=== PATIENT | male | born 1955 | race Two or more races ===

== ENCOUNTER 2022-08-22 10:21 | Emergency (ER) | payer MEDICAID ==
[~2022-08-22] VITALS: Ht 175.3 cm; Wt 90.0 kg
[2022-08-22 10:24] VITALS: BP 140/64
--- NOTE | 2022-08-22 11:14 | NUR ---
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
== END 2022-08-22 12:12 | disposition home or self-care (01) ==
LOC: ER 10:22
DX: S52.592A Other fractures of lower end of left radius, initial encounter for closed fracture (principal); W18.39XA Other fall on same level, initial encounter; Y93.89 Activity, other specified; Y92.89 Other specified places as the place of occurrence of the external cause; Y99.8 Other external cause status
CPT/HCPCS: 29125; 73090; 73110; 99284

== ENCOUNTER 2022-10-03 10:40 | Emergency (ER) | payer MEDICAID ==
[~2022-10-03] VITALS: Ht 177.8 cm; Wt 90.0 kg
[2022-10-03 10:56] VITALS: BP 128/79; PULSE 69; RESP 18; TEMP 97; O2SAT 95
--- NOTE | 2022-10-03 12:22 | NUR ---
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 TRANSLATION NUMBER [id number]
== END 2022-10-03 13:36 | disposition home or self-care (01) ==
LOC: ER 10:41
DX: M25.532 Pain in left wrist (principal)
CPT/HCPCS: 29125; 73100; 99284